=== PATIENT | male | born 1940 | race Caucasian/White ===

== ENCOUNTER 2022-02-23 09:27 | Observation (INO) ==
[2022-02-23] MEDS ORDERED: ONDANSETRON 4 MG/2 ML VIAL IV PRN (09:30)
[2022-02-23] MEDS ORDERED: POTASSIUM CHLORIDE 20 MEQ TABLET PO PRN (09:30)
[2022-02-23] MEDS ORDERED: MORPHINE 2 MG/1 ML SYRINGE IV PRN (09:30)
[2022-02-23] MEDS ORDERED: MAGNESIUM SULF RIDER 2 GM/50 ML PREMIX IV PRN (09:30)
[2022-02-23] MEDS ORDERED: hydrALAZINE 20 MG/1 ML VIAL IV PRN (09:30)
[2022-02-23] MEDS ORDERED: MAGNESIUM SULF RIDER 4 GM/100 ML PREMIX IV PRN (09:30)
[2022-02-23] MEDS ORDERED: MYLANTA/LIDO VISC 2:1 300 ML BOTTLE SWISH/SWAL PRN (09:37)
[2022-02-23] MEDS: SODIUM CHLORIDE 0.9% 1,000 ML IV SCH ×2 (11:00→23:08)
[2022-02-23 11:16] LABS: Basophils % 0.3 % (0.0-0.8); Eosinophils % 0.7 % (0.00-10.9); Hematocrit 24.6 VOL% (42.0-52.0); Hemoglobin 8.3 GM/DL (14.0-18.0); Immature Granulocytes % 10.4 %; Lymphocytes # 0.2 10*3/uL (1.4-4.0); Lymphocytes % 6.2 % (21.2-54.2); Mean Corpuscular HGB Conc 33.7 GM/DL (32-36); Mean Corpuscular Volume 103.4 FL (87-102); Mean Platelet Volume 9.3 FL (9.6-12.0); Monocytes # 0.7 10*3/uL (0.11-0.8); Monocytes % 25.3 % (1.7-12.7); Neutrophils % 57.1 % (38.7-73.9); Platelet Count 104 T/CUMM (130-400); Red Blood Count 2.38 MC/CUMM (3.8-5.5); White Blood Count 2.9 T/CUMM (4-12)
[2022-02-23 11:48] LABS: Bilirubin,Total 0.7 MG/DL (0.20-1.00); Calcium 7.8 MG/DL (8.5-10.1); Osmolality,Calculated 262.8 MOS/KG (273-304); Potassium 4.2 MMOL/L (3.5-5.1); Thyroid Stimulating Hormone 1.51 uIU/ml (0.358-3.74); Total Protein 6.1 G/DL (6.4-8.2)
[2022-02-23 11:51] LABS: Lymphocytes 9 % (20-55); Myelocytes 4 %; Ovalocytes 1+; Total Cells Counted 100
[2022-02-23 11:54] LABS: Platelet Estimate Adequate
[2022-02-23] MEDS ORDERED: SODIUM CHLORIDE 0.9% 1,000 ML IV PRN ×2 (12:52→13:38)
[2022-02-23] MEDS ORDERED: PIPERACILLIN/TAZOBACTAM 3,375 MG in SODIUM CHLORIDE 0.9% 100 ML IV SCH ×2 (13:30→21:00)
[2022-02-23 14:38] LABS: Bacteria,Urine Few /HPF (Few); Bilirubin,Urine Negative (Negative); Blood, Urine Negative (Negative); Glucose,Urine (UA) Negative (Negative); Hyaline Casts,Urine 3 /LPF (0-3); Ketones,Urine Negative (Negative); Mucus,Urine Occasional /LPF (Occasional); Nitrite,Urine Negative (Negative); Protein,Urine Negative (Negative); RBC,Urine <1 /HPF (0-4); Urine Appearance CLEAR (Clear); Urine Color Yellow (Yellow); Urine Urobilinogen < 2.0 eU/dL (<2.0)
[2022-02-23] MEDS: ACYCLOVIR INJ 750 MG in SODIUM CHLORIDE 0.9% 250 ML IV SCH (14:50)
[2022-02-23] MEDS: AMIODARONE 200 MG TABLET PO SCH (21:48)
[2022-02-24 05:11] LABS: Basophils % 0.4 % (0.0-0.8); Eosinophils # 0.1 10*3/uL (0.0-0.87); Eosinophils % 2.3 % (0.00-10.9); Hematocrit 29.7 VOL% (42.0-52.0); Hemoglobin 10.1 GM/DL (14.0-18.0); Immature Granulocytes % 9.4 %; Immature Granulocytes Absolute 0.25 #; Lymphocytes # 0.3 10*3/uL (1.4-4.0); Lymphocytes % 11.7 % (21.2-54.2); Mean Corpuscular Volume 98.7 FL (87-102); Mean Platelet Volume 9.1 FL (9.6-12.0); Monocytes # 0.6 10*3/uL (0.11-0.8); Monocytes % 20.7 % (1.7-12.7); Neutrophils % 55.5 % (38.7-73.9); Platelet Count 89 T/CUMM (130-400); Red Blood Count 3.01 MC/CUMM (3.8-5.5); Red Cell Distribution Width 20.1 % (9.3-17.3); White Blood Count 2.7 T/CUMM (4-12)
[2022-02-24 05:28] LABS: Calcium 7.9 MG/DL (8.5-10.1); Osmolality,Calculated 262.5 MOS/KG (273-304)
[2022-02-24 05:32] LABS: Band Neutrophils 2 % (0-10); Eosinophils 4 % (0-10); Lymphocytes 16 % (20-55); Total Cells Counted 100
[2022-02-24 05:33] LABS: Calcium 8.2 MG/DL (8.5-10.1); Osmolality,Calculated 260.7 MOS/KG (273-304); Platelet Estimate Decreased; Potassium 3.9 MMOL/L (3.5-5.1)
[2022-02-24 05:34] LABS: Ovalocytes Slight
[2022-02-24] MEDS: SODIUM CHLORIDE 0.9% 1,000 ML IV SCH (06:00)
[2022-02-24] MEDS ORDERED: LACTATED RINGERS 1,000 ML IV SCH ×2 (07:00→08:00)
[2022-02-24] MEDS ORDERED: ETOMIDATE 40 MG/20 ML VIAL IV ONE (08:07)
[2022-02-24] MEDS ORDERED: propofoL 200 MG/20 ML VIAL IV ONE (08:07)
[2022-02-24] MEDS ORDERED: fentaNYL 100 MCG/2 ML VIAL ONE (08:07)
[2022-02-24] MEDS ORDERED: LIDOCAINE 2% 5 ML VIAL ONE (08:07)
[2022-02-24] MEDS ORDERED: PANTOPRAZOLE 40 MG TABLET PO SCH (09:00)
[2022-02-24] MEDS: ACYCLOVIR INJ 750 MG in SODIUM CHLORIDE 0.9% 250 ML IV SCH (09:54)
[2022-02-24] MEDS: AMIODARONE 200 MG TABLET PO SCH (09:56)
[2022-02-24 11:13] VITALS: BP 150/70
== END 2022-02-24 14:00 | disposition home health service (06) ==
LOC: N.TELES
PROVIDERS: ADMIT Internal Medicine Cardiovascular Disease; ATTEND Internal Medicine Cardiovascular Disease
PROC: EGDWPEG (ICD-10-PCS; 2022-02-24 07:05)

== ENCOUNTER 2022-02-26 06:14 | Observation (INO) ==
[2022-02-26] MEDS ORDERED: ACETAMINOPHEN 325 MG TABLET PO PRN (07:13)
[2022-02-26] MEDS ORDERED: ONDANSETRON 4 MG/2 ML VIAL IV PRN (07:13)
[2022-02-26 07:22] LABS: Basophils % 0.2 % (0.0-0.8); Hematocrit 28.4 VOL% (42.0-52.0); Hemoglobin 9.9 GM/DL (14.0-18.0); Immature Granulocytes % 5.7 %; Immature Granulocytes Absolute 0.25 #; Lymphocytes # 0.1 10*3/uL (1.4-4.0); Lymphocytes % 2.3 % (21.2-54.2); Mean Corpuscular HGB Conc 34.9 GM/DL (32-36); Mean Corpuscular Volume 98.3 FL (87-102); Mean Platelet Volume 9.5 FL (9.6-12.0); Monocytes # 0.8 10*3/uL (0.11-0.8); Neutrophils % 73.8 % (38.7-73.9); Platelet Count 75 T/CUMM (130-400); Red Blood Count 2.89 MC/CUMM (3.8-5.5); Red Cell Distribution Width 19.8 % (9.3-17.3); White Blood Count 4.4 T/CUMM (4-12)
[2022-02-26 07:29] LABS: Partial Thromboplastin Time 31.6 SECS (23.7-32.9)
[2022-02-26] MEDS ORDERED: SODIUM CHLORIDE 0.9% 1,000 ML IV SCH ×2 (07:30)
[2022-02-26 07:36] LABS: Albumin 2.8 G/DL (3.4-5.0); Calcium 7.1 MG/DL (8.5-10.1); Osmolality,Calculated 265.4 MOS/KG (273-304); Potassium 3.3 MMOL/L (3.5-5.1); Total Protein 5.3 G/DL (6.4-8.2)
[2022-02-26 07:49] LABS: Band Neutrophils 5 % (0-10); Lymphocytes 2 % (20-55); Total Cells Counted 100
[2022-02-26 07:51] LABS: Anisocytosis Slight; Ovalocytes Slight; Platelet Estimate Decreased
[2022-02-26] MEDS ORDERED: SODIUM CHLORIDE 0.9% 1,000 ML IV ONE (07:51)
[2022-02-26] MEDS ORDERED: LACTATED RINGERS 1,000 ML IV SCH (08:00)
[2022-02-26] MEDS ORDERED: POTASSIUM BICARB EFFERVESCENT 20 MEQ TAB.EFF PEG ONE (08:12)
[2022-02-26] MEDS ORDERED: MAGNESIUM GLUCONATE 200 MG/ML 30 ML/BOTTLE PEG ONE (08:14)
== END 2022-02-26 08:50 | disposition home health service (06) ==
LOC: N.ICU
PROVIDERS: ADMIT Family Medicine; ATTEND Family Medicine

== ENCOUNTER 2022-03-30 11:50 | Observation (INO) ==
[2022-03-31] MEDS ORDERED: ONDANSETRON 4 MG/2 ML VIAL IV PRN (07:58)
[2022-03-31] MEDS ORDERED: ACETAMINOPHEN 325 MG TABLET PO PRN (07:58)
[2022-03-31] MEDS ORDERED: SODIUM CHLORIDE 0.9% 1,000 ML IV PRN (07:59)
[2022-03-31] MEDS ORDERED: SODIUM CHLORIDE 0.9% 1,000 ML IV SCH (08:00)
[2022-03-31 17:53] VITALS: BP 151/83
== END 2022-03-31 17:50 | disposition home or self-care (01) ==
LOC: N.TELES → SUATTDRO 03-31 08:13
PROVIDERS: ADMIT Internal Medicine; ATTEND Internal Medicine